=== PATIENT | male | born 1930 | race Caucasian/White ===

== ENCOUNTER 2018-03-22 14:43 | Emergency (ER) | payer OTHER ==
[~2018-03-22] VITALS: Ht 172.7 cm; Wt 80.7 kg
[~2018-03-22 14:43] MED LIST: ALBUTEROL2.5 MG/31 INH; APAP650 PO; ASPIRIN325 PO; ATENOLOL 25MG T25 M1 PO; CETAPHIL CREAM454 GM TOP; CLARITIN10 M2 PO; CLARITIN10 MG PO; ENOXAPARIN30 MG/0.1 SUBQ; FENOFIBRATE160 MG PO; FERROUS SULFAT325 MG PO; FLONASE 0.05%50 MCG NASAL; GYNE-LOTRIMIN-745 GM TOP; IRON325 PO; JANUVIA50 MG PO; KLOR-CON 1010 MEQ PO; LASIX 20 MG TAB20 MG PO; LEVAQUIN 500 M500 M2 PO; LIPITOR 20 MG T20 M1 PO; LIPITOR20 MG PO; NITROGLYCERIN0.4 MG SUBLING; NOVOLOG100 UNIT/1; OMEPRAZOLE20 M1 PO; PREDNISONE 20 M20 MG PO; PRILOSEC 20 MG20 MG PO; PROAIR RESPICL90 MCG IH; PROTONIX40 M4 PO; REQUIP 1 MG TABL1 M1 PO; REQUIP0.5 MG PO; TENORMIN25 MG PO; UNICOMPLEX M TA1 TA1 PO; VITAMIN D2000 UNI1 PO; VITAMIN D250000 UNIT PO; [UNRECOGNIZED DRUG - OTHER] PO
[2018-03-22 18:04] VITALS: BP 172/69
== END 2018-03-22 18:05 | disposition home or self-care (01) ==
LOC: ER 14:43
DX: S52.91XA Unspecified fracture of right forearm, initial encounter for closed fracture (principal); S41.111A Laceration without foreign body of right upper arm, initial encounter; E11.21 Type 2 diabetes mellitus with diabetic nephropathy; I25.10 Atherosclerotic heart disease of native coronary artery without angina pectoris; I12.9 Hypertensive chronic kidney disease with stage 1 through stage 4 chronic kidney disease, or unspecified chronic kidney disease; E11.22 Type 2 diabetes mellitus with diabetic chronic kidney disease; N18.4 Chronic kidney disease, stage 4 (severe); M19.90 Unspecified osteoarthritis, unspecified site; Z88.1 Allergy status to other antibiotic agents; Z88.2 Allergy status to sulfonamides; W18.30XA Fall on same level, unspecified, initial encounter; Y93.89 Activity, other specified; Y92.89 Other specified places as the place of occurrence of the external cause; Y99.8 Other external cause status